=== PATIENT | female | born 1970 | race Caucasian/White ===

== ENCOUNTER 2016-06-21 17:30 | Emergency (ER) | payer MEDICAID ==
[~2016-06-21] VITALS: Ht 154.9 cm; Wt 61.7 kg
[2016-06-21 21:02] LABS: BASOPHIL % 0.6 % (0-2); PLATELET COUNT 281 x10^3mcL (130-400)
[2016-06-21 21:10] LABS: CALCIUM 9.2 mg/dL (8.5-10.1); CARBON DIOXIDE 26.1 mmol/L (21-32); CHLORIDE SERUM 101 mmol/L (98-107); CREATININE SERUM 0.7 mg/dL (0.6-1.0); GFR1 > 60 mL/min; GLUCOSE SERUM 95 mg/dL (74-106); POTASSIUM SERUM 3.6 mmol/L (3.5-5.1); SODIUM SERUM 140 mmol/L (136-145)
[2016-06-21 21:21] LABS: ALKALINE PHOSPHATASE 68 U/L (46-116); ALT/SGPT 19 U/L (14-59); AST/SGOT 15 U/L (15-37); BILIRUBIN TOTAL 0.3 mg/dL (0.20-1.00)
[2016-06-21 21:30] LABS: TOTAL PROTEIN, SERUM 8.4 g/dL (6.4-8.2)
[2016-06-21 22:41] VITALS: BP 113/83
== END 2016-06-21 22:42 | disposition home or self-care (01) ==
LOC: ED 17:30
PROVIDERS: Specialist
DX: R07.9 Chest pain, unspecified (principal); J06.9 Acute upper respiratory infection, unspecified; Z88.1 Allergy status to other antibiotic agents
CPT/HCPCS: 83880; Q0092